=== PATIENT | female | born 1990 | race Caucasian/White ===

== ENCOUNTER 2016-11-03 13:22 | Emergency (ER) | payer MEDICAID ==
[2016-11-03 13:40] VITALS: BP 134/99
--- NOTE | 2016-11-03 13:45 | EDM.PDOC ---
[id number] ADMIT FROM CLINIC-RASH Time Seen by Provider: 11/03/16 13:45 Source: Reports: Patient History Limitations: Reports: No limitations - History of Present Illness INITIAL COMMENTS - FREE TEXT/NARRATIVE: 25-year-old female with several chronic psychiatric diagnoses including anxiety disorder presents with a persistent rash in her lower left anterior abdomen that has her very anxious and hyperventilating. She went into the walk-in clinic and commented that she should have just "went to the emergency room" so they sent her over. She has a drying rash on the left lower abdomen that is pruritic and sore. Timing: Reports: better Quality: Reports: Ache, Burning Severity: moderate Associated symptoms: Reports: shortness of breath, malaise, nausea/vomiting - Related Data Allergies Allergy/AdvReac Type Severity Reaction Status Date / Time amoxicillin trihydrate Allergy Rash Verified 03/04/15 13:57 [From Augmentin] atomoxetine [From Strattera] Allergy Hallucinati Verified 11/03/16 13:31 ons potassium clavulanate Allergy Rash Verified 03/04/15 13:57 [From Augmentin] Home Meds: Ambulatory Orders Medication Instructions Recorded Confirmed Acetaminophen/Caffeine [Excedrin 1 tab PO Q6HR PRN 01/22/15 03/04/15 Tension Headache] Amphetamine/Dextroamphetamine 11/03/16 11/03/16 [Adderall XR] Gabapentin [Gabapentin] 11/03/16 Lisdexamfetamine [Vyvanse] 11/03/16 QUEtiapine Fumarate [Quetiapine 11/03/16 Fumarate] Zolpidem Tartrate [Zolpidem 11/03/16 Tartrate] buPROPion [buPROPion XL] 11/03/16 clonazePAM [Clonazepam] 11/03/16 Past Medical History - Past Health History Medical/Surgical History: Denies Medical/Surgical History Other OB/BYN History: 02/24/15 "tilted uterus". Psychiatric History: Reports: ADHD, Emotional problems - Past Surgical History HEENT Surgical History: Reports: Tonsillectomy Female Surgical History: Reports: section Other Female Surgeries/Procedures: 02/24/15 Social & Family History - Tobacco Use Smoking Status *Q: Current Every Day Smoker Years of Tobacco use: 5 Packs/Tins Daily: 0.5 Used Tobacco, but Quit: No Second Hand Smoke Exposure: Yes - Alcohol Use Days Per Week of Alcohol Use: 0 - Recreational Drug Use Recreational Drug Use: No ED ROS GENERAL - Review of Systems Review Of Systems: See Below Constitutional: Denies: fever Respiratory: Denies: Shortness of Breath Cardiovascular: Denies: Chest pain GI/Abdominal: Reports: Nausea Skin: Reports: rash Psychiatric: Reports: Anxiety ED EXAM, SKIN/RASH Exam: See Below Exam Limited By: No limitations General Appearance: alert, anxious Respiratory/Chest: no respiratory distress, lungs clear GI/Abdominal: other (Patient has a superficial, dry rash on the left lower quadrant of the abdomen. Somewhat tender to palpation, however she is difficult to examine because of her significant overlying anxiety) Course - Vital Signs Last Recorded V/S: Last Vital Signs Temp 98.6 F 11/03/16 13:39 Pulse 120 H 11/03/16 13:39 Resp 20 11/03/16 13:39 BP 134/99 H 11/03/16 13:39 Pulse Ox 100 11/03/16 13:39 - Re-Assessments/Exams Free Text/Narrative Re-Assessment/Exam: 11/03/16 14:26 This may be some resolving herpes simplex or possibly some contact dermatitis, difficult to tell as it is dry and resolving. She'll be supplied with topical triamcinolone cream to take 3 times daily and can recheck with primary care next week. She can return anytime if worsening or concerns. Departure - Departure Time of Disposition: 14:55 Disposition: Home, Self-Care 01 Condition: good Clinical Impression: Rash of body, Anxiety Instructions: Rash, Panic Attacks Referrals: PCP,None [Primary Care Provider] - Forms: ED Department Discharge Care Plan Goals: Continue your regular medications, and rub cream on the rash area 3 times a day through the weekend. Recheck next week.
== END 2016-11-03 14:55 | disposition home or self-care (01) ==
LOC: JP.ED 13:22
DX: R21 Rash and other nonspecific skin eruption (principal); F41.9 Anxiety disorder, unspecified; F17.210 Nicotine dependence, cigarettes, uncomplicated; Z98.890 Other specified postprocedural states; Z79.899 Other long term (current) drug therapy; Z88.1 Allergy status to other antibiotic agents; Z88.8 Allergy status to other drugs, medicaments and biological substances
CPT/HCPCS: 99283

== ENCOUNTER 2019-09-25 06:03 | Day surgery (SDC) | payer MEDICARE, MEDICAID ==
[2019-09-25] MEDS ORDERED: Dextrose 5%-Lactated Ringers 1,000 ML IV SCH (07:00)
[2019-09-25] MEDS ORDERED: Lidocaine 1% with EPINEPHrine 1:100,000 50 ML MDV ONE (07:03)
[2019-09-25] MEDS ORDERED: Lidocaine 1% 50 ML MDV ONE (07:03)
[2019-09-25] MEDS ORDERED: Bupivacaine 0.5% 50 ML MDV ONE (07:03)
[2019-09-25] MEDS ORDERED: Bacitracin Oint 1 GM U/D Packet ONE (07:04)
[2019-09-25] MEDS ORDERED: Propofol 200 MG/20 ML SDV ONE ×2 (07:09→08:00)
[2019-09-25] MEDS ORDERED: fentaNYL 100 MCG/2 ML SDV ONE (07:10)
[2019-09-25] MEDS ORDERED: Midazolam 1 MG/ML 2 ML SDV ONE (07:10)
[2019-09-25] MEDS ORDERED: Acetaminophen 325 MG Tab PO ONE (09:37)
[2019-09-25 09:57] VITALS: BP 114/72; PULSE 61
--- NOTE | 2019-10-02 09:24 | OR ---
DATE OF PROCEDURE: 09/25/2019 SURGEON: Albino Richard MD PREOPERATIVE DIAGNOSIS: Enlarging skin lesion, left forehead. POSTOPERATIVE DIAGNOSIS: Enlarging skin lesion, left forehead. OPERATIVE PROCEDURE: Excision of enlarging skin lesion, left forehead with layered closure ([id number]). ANESTHESIA: Local plus IV sedation. INDICATIONS FOR PROCEDURE: This is a 28-year-old presenting with an enlarging skin lesion. This is located in the forehead just above the medial aspect of the left eyebrow. The plan is to proceed with excision of this. Potential risks including bleeding, infection, some cosmetic deformity were reviewed, and the patient wishes to proceed. DETAILS OF PROCEDURE: The patient was taken to the operating room and placed in a supine position. IV sedation was administered, after which the area was prepped and draped with Betadine. In the lines of skin incision, an elliptical incision was made around the lesion, carried down through the skin and subcutaneous tissue and the lesion was removed in an intact manner. It is uncertain what the pathology is in this case, and we intentionally did not enter the substance of the palpable lesion. After removal of the lesion, the incisions were closed with layers of 5-0 Vicryl stitch deep and then a 6-0 Prolene skin stitch. Bacitracin was applied, and the patient was taken to the recovery room in satisfactory condition. The lesion plus margin length was 0.8 cm and the incision length 2.1 cm. Albino Richard MD /[id number]
== END 2019-09-25 09:45 | disposition home or self-care (01) ==
LOC: JP.SDS 06:03
PROVIDERS: ATTEND Surgery
DX: L72.0 Epidermal cyst (principal); K21.9 Gastro-esophageal reflux disease without esophagitis; F17.200 Nicotine dependence, unspecified, uncomplicated; Z88.8 Allergy status to other drugs, medicaments and biological substances
CPT/HCPCS: 11441; 12051; 81025; A9270; J2250; J2704; J3010; J3490; J7121; 88304; J2001

== ENCOUNTER 2024-05-27 07:03 | Emergency (ER) | payer MEDICARE, MEDICAID ==
[2024-05-27 07:12] VITALS: BP 120/80; PULSE 88
[2024-05-27] MEDS: methylPREDNISolone Sodium Succinate 125 MG/2 ML SDV IVPUSH ONE (07:50)
[2024-05-27] MEDS: Famotidine 20 MG/2 ML SDV IVPUSH ONE (07:50)
== END 2024-05-27 09:01 | disposition home or self-care (01) ==
LOC: JP.ED 07:03
DX: L50.0 Allergic urticaria (principal); T45.0X5A Adverse effect of antiallergic and antiemetic drugs, initial encounter; I10 Essential (primary) hypertension; E03.9 Hypothyroidism, unspecified; Z90.89 Acquired absence of other organs; Z88.1 Allergy status to other antibiotic agents; Z88.8 Allergy status to other drugs, medicaments and biological substances; Z79.2 Long term (current) use of antibiotics; Z79.890 Hormone replacement therapy; Z79.899 Other long term (current) drug therapy
CPT/HCPCS: 96374; 96375; 99283; J2919; J3490

== ENCOUNTER 2024-09-23 21:08 | Emergency (ER) | payer MEDICARE, MEDICAID ==
[2024-09-23 21:24] VITALS: BP 146/104; PULSE 103
[2024-09-23] MEDS: Ibuprofen 400 MG Tab PO ONE (22:11)
[2024-09-23] MEDS: Acetaminophen 500 MG Tab PO ONE (22:12)
== END 2024-09-23 22:52 | disposition home or self-care (01) ==
LOC: JP.ED 21:08
DX: S61.257A Open bite of left little finger without damage to nail, initial encounter (principal); S61.253A Open bite of left middle finger without damage to nail, initial encounter; I10 Essential (primary) hypertension; E03.9 Hypothyroidism, unspecified; F17.210 Nicotine dependence, cigarettes, uncomplicated; Z79.890 Hormone replacement therapy; Z88.0 Allergy status to penicillin; Z88.1 Allergy status to other antibiotic agents; Z88.8 Allergy status to other drugs, medicaments and biological substances; W54.0XXA Bitten by dog, initial encounter; Y93.89 Activity, other specified
CPT/HCPCS: 99283; A9270